=== PATIENT | female | born 1965 | race Caucasian/White ===

== ENCOUNTER 2017-01-12 22:35 | Emergency (ER) | payer BC ==
[2017-01-12 22:43] VITALS: BP 125/73; PULSE 92; BMI 23.8
--- NOTE | 2017-01-12 23:20 | PDOC ---
History of Present Illness <Young Bergeron - Last Filed: 01/13/17 00:34> - General History Source: Patient Exam Limitations: No Limitations - History of Present Illness Initial Comments: 01/13/17 00:45 The patient is a 51 year old female, with no significant past medical history who presents to the emergency department with L hand bone injury today. The patient reports she was playing basketball and jammed her L fifth finger. She notes that she immediately jammed it into place and now reports it is increasingly swollen. She presents to the ED for further evaluation. The patient denies any pain medications. Allergies: NKA Past surgical history: None Social history: None PCP: None <Elisa Pike - Last Filed: 01/13/17 01:50> - General Chief Complaint: Bone Injury Stated Complaint: INJURY Time Seen by Provider: 01/12/17 23:20 Past History - Psycho/Social/Smoking Cessation Hx Suicidal Ideation: No Smoking History: Never smoked <Young Bergeron - Last Filed: 01/13/17 00:34> <Elisa Pike - Last Filed: 01/13/17 01:50> - Past Medical History Allergies/Adverse Reactions: Allergies Allergy/AdvReac Type Severity Reaction Status Date / Time No Known Allergies Allergy Verified 01/12/17 22:41 Home Medications: Ambulatory Orders Ibuprofen/Diphenhydramine Cit [Advil Pm Caplet] 1 each PO HS PRN 01/12/17 Oxycodone HCl/Acetaminophen [Percocet 5-325 mg Tablet] 1 - 2 tab PO Q4H #20 tablet MDD 6 01/13/17 Review of Systems - Review of Systems Able to Perform ROS?: Yes Comments:: 01/13/17 00:45 GENERAL/CONSTITUTIONAL: No fever or chills. No weakness. HEAD, EYES, EARS, NOSE AND THROAT: No change in vision. No ear pain or discharge. No sore throat. CARDIOVASCULAR: No chest pain or shortness of breath. RESPIRATORY: No cough, wheezing, or hemoptysis. GASTROINTESTINAL: No nausea, vomiting, diarrhea or constipation. GENITOURINARY: No dysuria, frequency, or change in urination. MUSCULOSKELETAL: No joint or muscle swelling or pain. No neck or back pain. SKIN: No rash NEUROLOGIC: No headache, vertigo, loss of consciousness, or change in strength/ sensation. ENDOCRINE: No increased thirst. No abnormal weight change. HEMATOLOGIC/LYMPHATIC: No anemia, easy bleeding, or history of blood clots. ALLERGIC/IMMUNOLOGIC: No hives or skin allergy. EXTREMITIES: + L finger isolated injury. <Elisa Pike - Last Filed: 01/13/17 01:50> *Physical Exam - Vital Signs Last Vital Signs Temp Pulse Resp BP Pulse Ox 92 H 18 125/73 97 01/12/17 22:42 01/12/17 22:42 01/12/17 22:42 01/12/17 22:42 <Young Bergeron - Last Filed: 01/13/17 00:34> - Vital Signs Last Vital Signs Temp Pulse Resp BP Pulse Ox 92 H 18 125/73 97 01/12/17 22:42 01/12/17 22:42 01/12/17 22:42 01/12/17 22:42 - Physical Exam Comments: 01/13/17 00:45 GENERAL: Awake, alert, and fully oriented, in no acute distress HEAD: No signs of trauma EYES: PERRLA, EOMI, sclera anicteric, conjunctiva clear ENT: Auricles normal inspection, hearing grossly normal, nares patent, oropharynx clear without exudates. Moist mucosa NECK: Normal ROM, supple, no lymphadenopathy, JVD, or masses LUNGS: Breath sounds equal, clear to auscultation bilaterally. No wheezes, and no crackles HEART: Regular rate and rhythm, normal S1 and S2, no murmurs, rubs or gallops ABDOMEN: Soft, nontender, normoactive bowel sounds. No guarding, no rebound. No masses EXTREMITIES: + MCP joint swollen and pointed out laterally. Normal range of motion, no edema. No clubbing or cyanosis. No cords, erythema, or tenderness NEUROLOGICAL: Cranial nerves II through XII grossly intact. Normal speech, normal gait SKIN: Warm, Dry, normal turgor, no rashes or lesions noted. <Elisa Pike - Last Filed: 01/13/17 01:50> Medical Decision Making - Medical Decision Making 01/13/17 00:46 Patient left without discharge paperwork or prescription. <Elisa Pike - Last Filed: 01/13/17 01:50> *DC/Admit/Observation/Transfer - Discharge Dispostion Admit: No - Attestations Physician Attestion: 01/12/17 23:20 I, Dr. Young Bergeron, attest that this document has been prepared under my direction and personally reviewed by me in its entirety. I further attest, that it accurately reflects all work, treatment, procedures and medical decision -making performed by me. <Young Bergeron - Last Filed: 01/13/17 00:34> - Attestations Scribe Attestion: 01/13/17 00:47 Documentation prepared by Elisa Pike, acting as nurses medical assistants phlebotomists for Young Bergeron MD/DO. <Elisa Pike - Last Filed: 01/13/17 01:50> Diagnosis at time of Disposition: Dislocated finger Qualifiers: Encounter type: initial encounter Qualified Code(s): S63.259A - Unspecified dislocation of unspecified finger, initial encounter - Prescriptions Prescriptions: Oxycodone HCl/Acetaminophen [Percocet 5-325 mg Tablet] 1 - 2 tab PO Q4H #20 tablet MDD 6 - Referrals Referrals: STAFF,NOT ON [Primary Care Provider] - - Patient Instructions Printed Discharge Instructions: DI for Finger Dislocation
== END 2017-01-13 00:50 | disposition home or self-care (01) ==
LOC: JER 22:35
DX: S63.277A Dislocation of unspecified interphalangeal joint of left little finger, initial encounter (principal); W21.05XA Struck by basketball, initial encounter; Y93.67 Activity, basketball; Y92.310 Basketball court as the place of occurrence of the external cause; Y99.8 Other external cause status
CPT/HCPCS: 73130-TC-LT; 99282-25